=== PATIENT | male | born 1980 | race African-American/Black ===

== ENCOUNTER 2017-10-22 17:56 | Inpatient (IN) | payer OTHER ==
[~2017-10-22] VITALS: Ht 170.2 cm; Wt 80.1 kg
--- NOTE | ~2017-10-22 | 2DMMODE ---
[facility] [address] [facility] [place] [address] 2 D/M-MODE ECHOCARDIOGRAM Name: TAYLOR FIGUEROA Room #: 218-P ADM IN M.R.#: [id number] Admission: 10/22/17 Attend Phys: Justo Marcelo MD Discharge: Date of : 84 Date of Service: 10/23/17 1338 Report #: [id number] THIS REPORT FOR: //name// APPROVED REPORT Study performed: 10/23/2017 08:42:37 EXAM: Comprehensive 2D, Doppler, and color-flow Echocardiogram Patient Location: Bedside Room #: 218 Status: on-call BSA: 1.96 HR: 104 bpm BP: 132/82 mmHg Rhythm: Tachycardia Other Information Study Quality: Good Indications NSTEMI, chest pain, elevated troponin, tachycardia, HTN 2D Dimensions RVDd: 40.03 mm LVEF(%): 14.33 (>50%) IVSd: 9.61 (7-11mm) LVOT Diam: 22.03 (18-24mm) LVDd: 61.14 mm PWd: 10.37 (7-11mm) Ascending Ao: 32.69 (22-36mm) LVDs: 57.14 (25-40mm) Aortic Root: 31.86 mm Araujo's LVEF: 14.33 % Volumes Left Atrial Volume (Systole) Single Plane 4CH: 64.46 mL Single Plane 2CH: 69.92 mL LA ESV Index: 38.00 mL/m2 Aortic Valve AoV Peak Roly.: 0.80 m/s AO Peak Gr.: 2.53 mmHg LVOT Max P.25 mmHg LVOT Max V: 0.56 m/s SATYA Vmax: 2.68 cm2 Mitral Valve MV Decel. Time: 163.15 ms MV E Max Roly.: 0.81 m/s [facility] [place] [address] 2 D/M-MODE ECHOCARDIOGRAM Name: TAYLOR FIGUEROA Room #: 218-P ADM IN M.R.#: [id number] Admission: 10/22/17 Attend Phys: Justo Marcelo MD Discharge: Date of : 84 Date of Service: 10/23/17 1338 Report #: [id number] Pulmonary Valve PV Peak Roly.: 0.61 m/s PV Peak Gr.: 1.47 mmHg Tricuspid Valve TR Peak Roly.: 2.94 m/s RAP Estimate: 5.00 mmHg TR Peak Gr.: 34.65 mmHg PA Pressure: 40.00 mmHg Left Ventricle Left ventricle is mild to moderately dilated. There is normal left ventricular wall thickness. Left ventricular systolic function is severely decreased. A small left ventricular thrombus is present. LVEF is 20%. This study is not technically sufficient to allow evaluation of the LV diastolic function. Right Ventricle The right ventricle is normal size. The right ventricular systolic function is low normal. Atria Left atrium is mildly dilated. The right atrium size is normal. Aortic Valve The aortic valve is normal in structure. No aortic regurgitation is present. There is no aortic valvular stenosis. Mitral Valve The mitral valve is normal in structure. Moderate mitral regurgitation. Tricuspid Valve The tricuspid valve is normal in structure. Mild tricuspid regurgitation. Estimated PAP is 40mmHg. Pulmonic Valve The pulmonary valve is normal in structure. Trace pulmonic regurgitation. Great Vessels The aortic root is normal in size. The ascending aorta is normal in size. IVC is normal in size and collapses >50% with inspiration. Pericardium [facility] [address] [place] [address] 2 D/M-MODE ECHOCARDIOGRAM Name: TAYLOR FIGUEROA Room #: 218-P ADM IN M.R.#: [id number] Admission: 10/22/17 Attend Phys: Justo Marcelo MD Discharge: Date of : 84 Date of Service: 10/23/17 1338 Report #: [id number] There is no pericardial effusion. <Conclusion> Left ventricle is mild to moderately dilated. LVEF is 20%. A small left ventricular thrombus is present. Left atrium is mildly dilated. The aortic valve is normal in structure. The mitral valve is normal in structure. Moderate mitral regurgitation. The tricuspid valve is normal in structure. Mild tricuspid regurgitation. Estimated PAP is 40mmHg. The pulmonary valve is normal in structure. Trace pulmonic regurgitation. There is no pericardial effusion. <ELECTRONICALLY SIGNED> By: Royce Dye MD 10/23/17 1338 1338 1338 Royce Dye MD /INF
--- NOTE | ~2017-10-22 | HC ---
[facility] [place] [address] CONSULTATION Name: TAYLOR FIGUEROA Room #: 207-P [facility] IN M.R.#: [id number] Admission: 10/22/17 Attend Phys: Say Stein MD Discharge: Date of : 84 Report #: [id number] THIS REPORT FOR: //name// CC: Justo FALK unknown HISTORY OF PRESENT ILLNESS: This is a 37-year-old -Algerian male without prior history of coronary artery disease who presented to the Emergency Room complaining of chest discomfort. The patient states the symptoms began approximately one hour prior to presentation to the Emergency Room with sudden onset, nonradiating. He said it felt like a tightening, but upon further questioning it was actually a fullness sensation of not being able to capture and get his entire breath. The patient states he has been not feeling well for about 3 weeks or so where he was diagnosed with walking pneumonia. He denied any coughing at that time only when he laid down at night and it was not purulent in appearance, but clear frothy at times. He had no fever, chills or night sweats. He did go to urgent care 3 days ago where he was tested positive for the flu and was given Tamiflu, but due to side effects he did not complete his course. Upon questioning, he continued to get more short of breath and although he did play basketball weekly, the last week or so he has not been able to play due to just not feeling well, not having any energy or get up and go. He states he does have a history of high blood pressure for which he takes hydrochlorothiazide and had an inhaler prescribed some time ago for breathing. He denies any exertional tightness, heaviness or fullness or limitations prior to 3 weeks ago. PAST MEDICAL HISTORY: Significant for hypertension. MEDICATIONS: At home are hydrochlorothiazide and Tessalon Perles. ALLERGIES: No known drug allergies. SOCIAL HISTORY: The patient does not smoke. He does consume alcohol weekly. He does not follow a particular exercise regimen or dietary restriction, although he does play basketball weekly prior to his onset of symptoms. PAST SURGICAL HISTORY: Significant for no major surgical procedures. FAMILY HISTORY: Negative for premature cardiovascular disease in first degree and second degree relatives. REVIEW OF SYSTEMS: Except for symptoms previously mentioned and those commensurate with comorbid states, the 10 point review of system is negative. PHYSICAL EXAMINATION: GENERAL: Well-developed, well-nourished -Algerian male, resting comfortably in no acute distress. [facility] [address] [place] [address] CONSULTATION Name: TAYLOR FIGUEROA Room #: 207-P [facility] IN [facility]#: [id number] Admission: 10/22/17 Attend Phys: Say Stein MD Discharge: Date of : 84 Report #: [id number] VITAL SIGNS: Reviewed and noted in the chart. HEENT: Normocephalic, atraumatic. Pupils are equal, round, reactive to light and accommodation. Extraocular muscles are intact. Sclerae and conjunctivae are anicteric. NECK: JVD is normal. Carotid upstrokes are bilaterally symmetrical. No bruits are heard. No thyromegaly. No lymphadenopathy. LUNGS: Demonstrates minimal bibasilar crackles noted. Tidal volume is satisfactory. CARDIAC: Demonstrates ____ rhythm. Systolic murmur at the apex. No diastolic murmurs are noted. There is no respiratory variation to the murmur and PMI is not able to be palpated due to body habitus. ABDOMEN: Soft, nontender, nondistended. Normal bowel sounds. EXTREMITIES: Without cyanosis, clubbing or edema. Distal pulses are intact. DTR symmetrical. NEUROLOGIC: Cranial nerves 2-12 are grossly normal and symmetrical. PSYCHIATRIC: Alert, oriented with normal affect. SKIN: Warm and dry. LABORATORY DATA: Electrocardiogram, sinus tachycardia, no acute changes, nonspecific ST-T wave changes. Troponin was 2.86 on admission. LDL is 200, cholesterol 271 and HDL 61. TSH 2.8. D-dimer was 0.53. Potassium 3.7, BUN and creatinine of 15 and 1.0. H and H is 14.8 and 43.1 with a platelet count of 296,000. RADIOLOGY: CAT scan failed to demonstrate the presence of pulmonary emboli. There were some findings of atypical infection or edema posteriorly in the lower lobes. IMPRESSION: 1. Congestive heart failure secondary to markedly decreased left ventricular systolic function. The viral type syndrome, etc., may be a factor of myocarditis. He is currently electrically and hemodynamically stable. I am going to move him to the unit for closer observation. We will initiate an DEBBIE inhibitor tonight after I diurese him during the day to stabilize his orthopnea. We will then initiate beta blockade tomorrow. I did discuss at length with him and his girlfriend the diagnosis, prognosis and treatment course ahead of him. 2. Left atrial thrombus. Echocardiogram demonstrates a small left atrial thrombus. He is anticoagulated currently. We will continue with that and we will need to transition him over to warfarin at discharge. 3. Hypertension. Blood pressure is not an issue at this juncture. It has enough support, so that we can initiate the guideline directed medical therapy for cardiomyopathic process. 4. Cardiomyopathy. We will need to evaluate the source, may require [address] [address] CONSULTATION Name: TAYLOR FIGUEROA Room #: 207-P ADM IN M.R.#: [id number] Admission: 10/22/17 Attend Phys: Say Stein MD Discharge: Date of : 84 Report #: [id number] angiography at some point in time, but for now, we will stabilize his heart failure and initiate appropriate medications. <ELECTRONICALLY SIGNED> By: Royce Dye MD 10/29/17 1118 1439 2238 Royce Dye MD /nt
--- NOTE | ~2017-10-22 | EKG ---
[address] [place] [address] ELECTROCARDIOGRAM REPORT Name: TAYLOR FIGUEROA Room #: 247-P ADM IN M.R.#: [id number] Admission: 10/22/17 Attend Phys: Justo Marcelo MD Discharge: Date of : 84 Report #: [id number] THIS REPORT FOR: //name// [facility] ED Test Date: 2017-10-22 Test Time: 18:05:47 Pat Name: TAYLOR FIGUEROA Department: Room: 247 Gender: M Electronic Technician: WILLIE : 1980 Requested By: Stephanie Ruby Order Number: [id number] MD: Leonardo Austin Measurements Intervals [place] Rate: 113 P: 63 MI: 129 QRS: 3 QRSD: 86 T: 94 QT: 332 QTc: 456 Interpretive Statements Sinus tachycardia Nonspecific T wave abnormality No previous ECG available for comparison Electronically Signed On 10-24-2017 15:22:03 COFFEE BREWER by Leonardo Austin [email or web address] <ELECTRONICALLY SIGNED> By: Leonardo Austin MD, [facility] 10/24/17 1522 1805 1805 Leonardo Austin MD, FACC /EPI
--- NOTE | ~2017-10-22 | EKG ---
[place] [address] [facility] [place] [address] ELECTROCARDIOGRAM REPORT Name: TAYLOR FIGUEROA Room #: 247-P ADM IN M.R.#: [id number] Admission: 10/22/17 Attend Phys: Justo Marcelo MD Discharge: Date of : 84 Report #: [id number] THIS REPORT FOR: //name// [facility] Test Date: 2017-10-23 Test Time: 06:17:47 Pat Name: TAYLOR FIGUEROA Department: Room: 247 Gender: M Post Graduate Intern: [email or web address] : 1980 Requested By: Allyson Khan Order Number: [id number] MD: Leonardo Austin Measurements Intervals [place] Rate: 96 P: 46 IL: 141 QRS: -5 QRSD: 88 T: 61 QT: 393 QTc: 497 Interpretive Statements Sinus rhythm Left ventricular hypertrophy Nonspecific T wave abnormality Prolonged QT interval No previous ECG available for comparison Electronically Signed On 10-24-2017 15:25:40 BACK SIZER by Leonardo Austin [email or web address] <ELECTRONICALLY SIGNED> By: Leonardo Austin MD, [facility] 10/24/17 1525 0617 6 Leonardo Austin MD, FACC /EPI
[2017-10-22 18:01] VITALS: BP 145/98
[2017-10-22 18:21] LABS: BASOPHILS 0.7 % (0.0-2.0); HEMATOCRIT 43.1 % (42.0-52.0); HEMOGLOBIN 14.8 gm/dL (14.0-18.0); LYMPHOCYTES 49.9 % (24.0-44.0); MCH 31.2 pg (26.0-34.0); MCHC 34.4 g/dL (28.0-37.0); MCV 90.6 fL (80.0-100.0); MONOCYTES 9.3 % (1.0-8.0); PLATELET COUNT 296 thou/uL (150-400); POLYS 36.1 % (36.0-66.0); RBC 4.76 mil/uL (4.50-6.00); RDW 12.8 % (10.5-14.5); WBC 5.4 thou/uL (4.0-11.0)
[2017-10-22 18:24] LABS: ANION GAP 9 mmol/L (7-16); BUN 15 mg/dL (7-18); CALCIUM 8.9 mg/dL (8.5-10.1); CHLORIDE 109 mmol/L (98-107); CO2 24 mmol/L (21-32); GLUCOSE 120 mg/dL (74-106); POTASSIUM 3.7 mmol/L (3.5-5.1); SODIUM 142 mmol/L (136-145)
[2017-10-22 18:33] LABS: TROPONIN-I < 0.04 ng/mL (<0.06)
[2017-10-22] MEDS ORDERED: TESSALON PERLE100 MG PO (21:01)
[2017-10-22] MEDS ORDERED: HYDROCHLOROTHIA25 M2 PO (21:01)
[2017-10-22 21:04] LABS: APTT 24.7 Seconds (24.5-32.8); PROTIME 10.1 Seconds (9.3-11.4)
[2017-10-22 21:24] VITALS: BP 145/98
[2017-10-22 21:57] VITALS: BP 151/90
[2017-10-22 22:12] LABS: CHOLESTEROL 271 mg/dL (<200); HDL CHOLESTEROL 61 mg/dL (>40); LDL CHOLESTEROL 200 mg/dL (<100); TC:HDL 4.4 Ratio (Not establshd); TRIGLYCERIDE 53 mg/dL (<150); VLDL 11 mg/dL (<40)
[2017-10-22 22:25] LABS: SERUM ASSESSMENT Clear
[2017-10-22 22:32] VITALS: BP 149/102
[2017-10-23] VITALS (8 sets, daily range): BP systolic 114–132; BP diastolic 81–108
[2017-10-23 11:21] LABS: AMP/METHAMP Negative (Negative); BARBITURATES Negative (Negative); BENZODIAZEPINES Negative (Negative); COCAINE Negative (Negative); METHADONE Negative (Negative); OPIATES POSITIVE (Negative); PCP Negative (Negative)
[2017-10-23 16:06] LABS: GLYCOHEMOGLOBIN (HGB A1C) 5.3 % (4.8-5.6)
[2017-10-24] VITALS (13 sets, daily range): BP systolic 89–120; BP diastolic 67–100
[2017-10-24 09:17] LABS: ABSOLUTE NEUTROPHILS 3.3 thou/uL (1.4-8.2); BASOPHILS 0.6 % (0.0-2.0); EOSINOPHILS 1.5 % (0.0-3.0); HEMATOCRIT 45.4 % (42.0-52.0); HEMOGLOBIN 15.3 gm/dL (14.0-18.0); LYMPHOCYTES 37.6 % (24.0-44.0); MCH 30.6 pg (26.0-34.0); MCHC 33.7 g/dL (28.0-37.0); MCV 90.6 fL (80.0-100.0); MONOCYTES 8.4 % (1.0-8.0); PLATELET COUNT 305 thou/uL (150-400); POLYS 51.9 % (36.0-66.0); RBC 5.01 mil/uL (4.50-6.00); RDW 12.8 % (10.5-14.5); WBC 6.4 thou/uL (4.0-11.0)
[2017-10-24 09:34] LABS: CALCIUM 9.2 mg/dL (8.5-10.1); CREATININE 1.1 mg/dL (0.7-1.3); POTASSIUM 3.7 mmol/L (3.5-5.1)
[2017-10-24 09:38] LABS: TROPONIN-I 7.52 ng/mL (<0.06)
[2017-10-25] VITALS (10 sets, daily range): BP systolic 90–122; BP diastolic 57–83
[2017-10-25 02:57] LABS: HEMATOCRIT 44.6 % (42.0-52.0); HEMOGLOBIN 14.8 gm/dL (14.0-18.0); MCH 30.1 pg (26.0-34.0); MCHC 33.2 g/dL (28.0-37.0); MCV 90.7 fL (80.0-100.0); RBC 4.92 mil/uL (4.50-6.00); RDW 12.8 % (10.5-14.5); WBC 7.1 thou/uL (4.0-11.0)
[2017-10-25 03:03] LABS: CALCIUM 8.6 mg/dL (8.5-10.1); CREATININE 1.1 mg/dL (0.7-1.3); POTASSIUM 3.1 mmol/L (3.5-5.1)
[2017-10-26] VITALS (11 sets, daily range): BP systolic 82–114; BP diastolic 51–79
[2017-10-26 13:26] LABS: PROTIME 10.7 Seconds (9.3-11.4)
[2017-10-27 05:05] VITALS: BP 79/52
[2017-10-27 05:46] LABS: HEMATOCRIT 41.3 % (42.0-52.0); MCHC 33.9 g/dL (28.0-37.0); MCV 91.4 fL (80.0-100.0); RBC 4.52 mil/uL (4.50-6.00); WBC 5.2 thou/uL (4.0-11.0)
[2017-10-27 05:58] LABS: POTASSIUM 3.6 mmol/L (3.5-5.1)
[2017-10-27 07:18] VITALS: BP 109/69
[2017-10-27 10:03] LABS: INR 1.1; PROTIME 11.5 Seconds (9.3-11.4)
[2017-10-27 12:30] VITALS: BP 102/64
[2017-10-27 16:16] VITALS: BP 107/70
[2017-10-27 20:25] VITALS: BP 114/80
[2017-10-27 23:55] VITALS: BP 110/61
[2017-10-28 03:54] LABS: HEMATOCRIT 41.8 % (42.0-52.0); HEMOGLOBIN 14.2 gm/dL (14.0-18.0); MCH 30.5 pg (26.0-34.0); MCHC 33.9 g/dL (28.0-37.0); MCV 90.1 fL (80.0-100.0); RBC 4.64 mil/uL (4.50-6.00); RDW 12.5 % (10.5-14.5); WBC 5.5 thou/uL (4.0-11.0)
[2017-10-28 04:02] LABS: INR 1.3; PROTIME 13.2 Seconds (9.3-11.4)
[2017-10-28 04:45] VITALS: BP 104/65
[2017-10-28] MEDS ORDERED: ATORVASTATIN CA40 MG PO (09:37)
[2017-10-28] MEDS ORDERED: LISINOPRIL2.5 MG PO (09:37)
[2017-10-28] MEDS ORDERED: ST. JOSEPH ASPI81 MG PO (09:37)
[2017-10-28] MEDS ORDERED: COREG6.25 MG PO (09:37)
[2017-10-28 11:42] VITALS: BP 97/67
[2017-10-28 16:40] VITALS: BP 120/82
[2017-10-28 20:35] VITALS: BP 113/76
[2017-10-29 04:14] LABS: HEMATOCRIT 42.7 % (42.0-52.0); HEMOGLOBIN 14.5 gm/dL (14.0-18.0); MCH 30.7 pg (26.0-34.0); MCHC 33.9 g/dL (28.0-37.0); MCV 90.3 fL (80.0-100.0); RBC 4.73 mil/uL (4.50-6.00); RDW 12.9 % (10.5-14.5); WBC 5.6 thou/uL (4.0-11.0)
[2017-10-29 04:23] LABS: INR 1.6; PROTIME 16.2 Seconds (9.3-11.4)
[2017-10-29 04:58] VITALS: BP 83/50
[2017-10-29 07:08] VITALS: BP 97/66
[2017-10-29 11:21] VITALS: BP 109/68
[2017-10-29 15:25] VITALS: BP 96/66
[2017-10-29 17:07] LABS: INR 1.6; PROTIME 16.4 Seconds (9.3-11.4)
[2017-10-29] MEDS ORDERED: GUAIFENESIN/COD10 M1 PO (18:07)
[2017-10-29] MEDS ORDERED: TESSALON PERLE100 MG PO (18:07)
[2017-10-29] MEDS ORDERED: COUMADIN7.5 MG PO (18:12)
[2017-10-29 18:13] VITALS: BP 96/66
== END 2017-10-29 19:06 | disposition home or self-care (01) | DRG 871 ==
LOC: ER 17:56 → EROBS 20:54 → ICU 20:54 → EROBS 20:56 → 2N 22:11 → ICU 10-23 14:12 → 2N 10-25 13:56
PROVIDERS: Emergency Medicine; Hospitalist; Nurse Practitioner Family; Nurse Practitioner Gerontology
PROC: 05HF33Z Insertion of Infusion Device into Left Cephalic Vein, Percutaneous Approach (ICD-10-PCS; principal; 2017-10-25)
DX: A41.9 Sepsis, unspecified organism (principal); I21.4 Non-ST elevation (NSTEMI) myocardial infarction; J18.9 Pneumonia, unspecified organism; I50.23 Acute on chronic systolic (congestive) heart failure; I40.1 Isolated myocarditis; I23.6 Thrombosis of atrium, auricular appendage, and ventricle as current complications following acute myocardial infarction; I42.9 Cardiomyopathy, unspecified; R94.31 Abnormal electrocardiogram [ECG] [EKG]; I11.0 Hypertensive heart disease with heart failure; E66.9 Obesity, unspecified; Z79.899 Other long term (current) drug therapy; Z87.01 Personal history of pneumonia (recurrent); Z91.19 Patient's noncompliance with other medical treatment and regimen
CPT/HCPCS: 10078; 10081; 27001

== ENCOUNTER 2018-07-29 18:31 | Emergency (ER) | payer OTHER ==
[~2018-07-29] VITALS: Ht 170.2 cm; Wt 81.7 kg
--- NOTE | ~2018-07-29 | EKG ---
[address] [place] [address] ELECTROCARDIOGRAM REPORT Name: TAYLOR FIGUEROA [id number] Admission: 07/29/18 Attend Phys: Discharge: 07/29/18 Date of : 84 Report #: [id number] THIS REPORT FOR: //name// [facility] ED Test Date: 2018-07-29 Test Time: 18:50:07 Pat Name: TAYLOR FIGUEROA Department: Room: Gender: Hazardous Substances Engineer: oliver : 1980 Requested By: Live Whitlock Order Number: [id number] MD: Royce Dye Measurements Intervals [place] Rate: 75 P: GA: QRS: -7 QRSD: 86 T: -17 QT: 371 QTc: 415 Interpretive Statements Normal Sinus Rhythm Nonspecific ST/T abnormalities Compared to ECG 10/23/2017 06:17:47 Electronically Signed On 07-31-2018 23:14:32 NEWSPAPER PHOTOGRAPHER by Royce Dye [email or web address] <ELECTRONICALLY SIGNED> By: Royce Dye MD 07/31/18 2314 1850 1850 Royce Dye MD /FITZ
[~2018-07-29 18:31] MED LIST: ATORVASTATIN CA40 MG PO; COREG6.25 MG PO; COUMADIN7.5 MG PO; GUAIFENESIN/COD10 M1 PO; HYDROCHLOROTHIA25 M2 PO; LISINOPRIL2.5 MG PO; ST. JOSEPH ASPI81 MG PO; TESSALON PERLE100 MG PO
[2018-07-29] MEDS ORDERED: SPIRONOLACTONE25 M1 PO (19:19)
[2018-07-29 19:38] LABS: ABSOLUTE NEUTROPHILS 2.8 thou/uL (1.4-8.2); BASOPHILS 0.5 % (0.0-2.0); EOSINOPHILS 2.4 % (0.0-3.0); HEMATOCRIT 37.8 % (42.0-52.0); HEMOGLOBIN 12.9 gm/dL (14.0-18.0); LYMPHOCYTES 39.7 % (24.0-44.0); MCV 91.2 fL (80.0-100.0); MONOCYTES 8.1 % (1.0-8.0); PLATELET COUNT 297 thou/uL (150-400); POLYS 49.3 % (36.0-66.0); RBC 4.14 mil/uL (4.50-6.00); RDW 13.4 % (10.5-14.5); WBC 5.7 thou/uL (4.0-11.0)
[2018-07-29 19:45] LABS: ANION GAP 6 mmol/L (7-16); BUN 20 mg/dL (7-18); CALCIUM 9.3 mg/dL (8.5-10.1); CHLORIDE 108 mmol/L (98-107); CO2 29 mmol/L (21-32); CREATININE 0.9 mg/dL (0.7-1.3); GLUCOSE 99 mg/dL (74-106); POTASSIUM 3.8 mmol/L (3.5-5.1); SODIUM 143 mmol/L (136-145)
[2018-07-29 19:55] LABS: TROPONIN-I <0.06 ng/mL (<0.06)
[2018-07-29 20:39] VITALS: BP 141/90
== END 2018-07-29 20:40 | disposition home or self-care (01) ==
LOC: ER 18:31
PROVIDERS: Physician Assistant
DX: R06.02 Shortness of breath (principal); R20.2 Paresthesia of skin; I11.0 Hypertensive heart disease with heart failure; I50.9 Heart failure, unspecified; Z87.891 Personal history of nicotine dependence

== ENCOUNTER 2019-03-04 23:16 | Emergency (ER) | payer OTHER ==
[~2019-03-04] VITALS: Ht 167.6 cm; Wt 70.3 kg
[~2019-03-04 23:16] MED LIST changes: +SPIRONOLACTONE25 M1 PO
[2019-03-04] MEDS ORDERED: ENTRESTO 24 MG1 EACH PO (23:38)
[2019-03-04] MEDS ORDERED: POTASSIUM20 PO (23:39)
[2019-03-05 00:04] LABS: ABSOLUTE NEUTROPHILS 1.8 thou/uL (1.4-8.2); BASOPHILS 0.5 % (0.0-2.0); EOSINOPHILS 3.1 % (0.0-3.0); HEMATOCRIT 40.4 % (42.0-52.0); HEMOGLOBIN 13.6 gm/dL (14.0-18.0); LYMPHOCYTES 52.1 % (24.0-44.0); MCH 30.7 pg (26.0-34.0); MCHC 33.7 g/dL (28.0-37.0); MCV 91.2 fL (80.0-100.0); MONOCYTES 9.3 % (1.0-8.0); PLATELET COUNT 290 thou/uL (150-400); RBC 4.43 mil/uL (4.50-6.00); RDW 12.8 % (10.5-14.5); WBC 5.1 thou/uL (4.0-11.0)
[2019-03-05 00:07] LABS: CALCIUM 8.7 mg/dL (8.5-10.1); POTASSIUM 3.6 mmol/L (3.5-5.1)
[2019-03-05 00:14] LABS: ALBUMIN 3.9 g/dL (3.4-5.0); TOTAL BILIRUBIN 0.5 mg/dL (<0.1-1.0); TOTAL PROTEIN 7.5 g/dL (6.4-8.2)
[2019-03-05 01:42] LABS: URINE BILIRUBIN NEGATIVE (Negative); URINE BLOOD NEGATIVE (Negative); URINE CLARITY CLEAR; URINE COLOR YELLOW; URINE GLUCOSE-RANDOM* NEGATIVE (Negative); URINE KETONES NEGATIVE (Negative); URINE LEUKOCYTES-REFLEX NEGATIVE (Negative); URINE NITRITE-REFLEX NEGATIVE (Negative); URINE PROTEIN (DIPSTICK) NEGATIVE (Negative); URINE SPECIFIC GRAVITY <= 1.005 (1.005-1.035)
[2019-03-05 01:52] LABS: AMP/METHAMP Negative (Negative); BARBITURATES Negative (Negative); BENZODIAZEPINES Negative (Negative); COCAINE Negative (Negative); METHADONE Negative (Negative); OPIATES Negative (Negative); PCP Negative (Negative)
[2019-03-05 02:38] VITALS: BP 133/72
--- NOTE | 2019-03-06 08:14 | EKG ---
[address] [address] ELECTROCARDIOGRAM REPORT Name: TAYLOR FIGUEROA [id number] ������������������ Admission: 03/04/19 ������������������ Attend Phys: Discharge: 03/05/19 ������������������ Date of : 84 Report #: [id number] ����������������������������������������������������������������� [id number] THIS REPORT FOR: //name// [facility] ED Test Date: 2019-03-04 Test Time: 23:24:00 Pat Name: TAYLOR FIGUEROA Department: Room: Gender: M International Coordinator: CAMERON : 1980 Requested By: Jelani Almendarez Order Number: [id number] MD: Natalio Stanley Measurements Intervals [place] Rate: 83 P: 58 IN: 156 QRS: 10 QRSD: 82 T: -11 QT: 350 QTc: 412 Interpretive Statements Sinus rhythm Borderline T abnormalities, anterior leads Compared to ECG 07/29/2018 18:50:07 T-wave abnormality now present Electronically Signed On 03-06-2019 8:14:45 CDT by Natalio Stanley [email or web address] ��������������������������������������������� <ELECTRONICALLY SIGNED> ���������������������������������������� By: Natalio Stanley MD ��������������������������������������������� 03/06/19 0814 23 23 Natalio Stanley MD /FITZ
== END 2019-03-05 02:40 | disposition home or self-care (01) ==
LOC: ER 23:16
PROVIDERS: Emergency Medicine
DX: R20.2 Paresthesia of skin (principal); I11.0 Hypertensive heart disease with heart failure; I50.9 Heart failure, unspecified; Z87.891 Personal history of nicotine dependence; Z79.899 Other long term (current) drug therapy

== ENCOUNTER 2019-03-27 14:43 | Emergency (ER) | payer OTHER ==
[~2019-03-27] VITALS: Ht 170.2 cm; Wt 81.7 kg
[~2019-03-27 14:43] MED LIST changes: +ENTRESTO 24 MG1 EACH PO; +POTASSIUM20 PO
[2019-03-27 15:57] LABS: ABSOLUTE NEUTROPHILS 2.7 thou/uL (1.4-8.2); BASOPHILS 0.5 % (0.0-2.0); EOSINOPHILS 2.5 % (0.0-3.0); HEMATOCRIT 40.1 % (42.0-52.0); HEMOGLOBIN 13.5 gm/dL (14.0-18.0); MCH 30.7 pg (26.0-34.0); MCHC 33.8 g/dL (28.0-37.0); MCV 90.9 fL (80.0-100.0); MONOCYTES 6.9 % (1.0-8.0); PLATELET COUNT 303 thou/uL (150-400); POLYS 54.1 % (36.0-66.0); RBC 4.41 mil/uL (4.50-6.00); RDW 13.1 % (10.5-14.5)
[2019-03-27 16:02] LABS: ANION GAP 10 mmol/L (7-16); BUN 16 mg/dL (7-18); CALCIUM 9.2 mg/dL (8.5-10.1); CHLORIDE 106 mmol/L (98-107); CO2 27 mmol/L (21-32); CREATININE 1.1 mg/dL (0.7-1.3); GLUCOSE 104 mg/dL (74-106); POTASSIUM 3.9 mmol/L (3.5-5.1); SODIUM 143 mmol/L (136-145)
[2019-03-27 16:12] LABS: ALBUMIN 3.7 g/dL (3.4-5.0); MAGNESIUM 1.7 mg/dL (1.8-2.4); SGOT 24 U/L (15-37); SGPT 36 U/L (30-65); TOTAL BILIRUBIN 0.4 mg/dL (<0.1-1.0); TOTAL PROTEIN 7.6 g/dL (6.4-8.2); TROPONIN-I <0.06 ng/mL (<0.06)
[2019-03-27 18:38] VITALS: BP 130/84
--- NOTE | 2019-03-28 18:22 | EKG ---
[address] [place] [address] ELECTROCARDIOGRAM REPORT Name: TAYLOR FIGUEROA [id number] ������������������ Admission: 03/27/19 ������������������ Attend Phys: Discharge: 03/27/19 ������������������ Date of : 84 Report #: [id number] ����������������������������������������������������������������� [id number] THIS REPORT FOR: //name// [facility] ED Test Date: 2019-03-27 Test Time: 14:43:01 Pat Name: TAYLOR FIGUEROA Department: Room: Gender: M Repairer Pump: : 1980 Requested By: Jelani Almendarez Order Number: [id number] MD: Leonardo Austin Measurements Intervals [place] Rate: 82 P: 43 NC: 157 QRS: 0 QRSD: 90 T: 16 QT: 380 QTc: 444 Interpretive Statements Sinus rhythm Normal tracing Compared to ECG 03/04/2019 23:24:00 T-wave abnormality no longer present Electronically Signed On 03-28-2019 18:22:00 CDT by Leonardo Austin [email or web address] ��������������������������������������������� <ELECTRONICALLY SIGNED> ���������������������������������������� By: Leonardo Austin MD, [facility] ��������������������������������������������� 03/28/19 1822 1443 1443 Leonardo Austin MD, FACC /EPI
== END 2019-03-27 18:58 | disposition home or self-care (01) ==
LOC: ER 14:43
PROVIDERS: Emergency Medicine
DX: R07.89 Other chest pain (principal)

== ENCOUNTER 2021-09-20 15:44 | Emergency (ER) | payer OTHER ==
[~2021-09-20] VITALS: Ht 170.2 cm; Wt 79.4 kg
[2021-09-20 16:46] LABS: HEMATOCRIT 45.3 % (42.0-52.0); HEMOGLOBIN 14.9 gm/dL (14.0-18.0); MCH 30.8 pg (26.0-34.0); MCHC 32.9 g/dL (28.0-37.0); MCV 93.8 fL (80.0-100.0); PLATELET COUNT 335 thou/uL (150-400); RBC 4.83 mil/uL (4.50-6.00); RDW 13.2 % (10.5-14.5); WBC 4.6 thou/uL (4.0-11.0)
[2021-09-20 16:55] LABS: CALCIUM 9.1 mg/dL (8.5-10.1); CREATININE 0.9 mg/dL (0.7-1.3); POTASSIUM 3.8 mmol/L (3.5-5.1)
[2021-09-20 17:05] LABS: ALBUMIN 3.6 g/dL (3.4-5.0); TOTAL BILIRUBIN 0.4 mg/dL (0.2-1.0); TOTAL PROTEIN 7.4 g/dL (6.4-8.2)
[2021-09-20 17:43] LABS: ATYPICAL LYMPHS 6 %
[2021-09-20] MEDS ORDERED: LASIX 20 MG TAB20 MG PO (19:16)
[2021-09-20] MEDS ORDERED: KLOR-CON 1010 MEQ PO (19:16)
[2021-09-20] MEDS ORDERED: CARVEDILOL12.5 MG PO (19:16)
[2021-09-20] MEDS ORDERED: DOXYCYCLINE 10100 MG PO (19:16)
[2021-09-20 19:45] VITALS: BP 148/103
--- NOTE | 2021-09-22 07:50 | EKG ---
[place] [address] [address] [place] [place] [address] ELECTROCARDIOGRAM REPORT Name: TAYLOR FIGUEROA [id number] Admission: 09/20/21 Attend Phys: Discharge: 09/20/21 Date of : 84 Report #: [id number] [facility] ED Test Date: 2021-09-20 Test Time: 15:58:23 Pat Name: TAYLOR FIGUEROA Department: Room: Gender: M History Professor: : 1980 Requested By: Buzz Lopez Order Number: [id number] MD: Sebastián Sue Measurements Intervals [place] Rate: 117 P: 59 DE: 36 QRS: -6 QRSD: 84 T: QT: 323 QTc: 451 Interpretive Statements Sinus tachycardia Consider left ventricular hypertrophy Nonspecific T abnrm, anterolateral leads Baseline wander in lead(s) I,II,aVR,V2 Compared to ECG 03/27/2019 14:43:01 Sinus rhythm no longer present Electronically Signed On 09-22-2021 7:50:32 POLISHER ALUMINUM by Sebastián Sue [email or web address] <ELECTRONICALLY SIGNED> By: Sebastián Sue MD, [facility] 09/22/21 0750 1558 1558 Sebastián Sue MD, FAC /EPI
== END 2021-09-20 20:48 | disposition home or self-care (01) ==
LOC: ER 15:44
PROVIDERS: Physician Assistant
DX: I11.0 Hypertensive heart disease with heart failure (principal); Z20.822 Contact with and (suspected) exposure to COVID-19; I50.9 Heart failure, unspecified; J18.9 Pneumonia, unspecified organism; R06.02 Shortness of breath; Z79.82 Long term (current) use of aspirin; Z79.899 Other long term (current) drug therapy; Z87.891 Personal history of nicotine dependence

== ENCOUNTER 2021-10-02 10:17 | Emergency (ER) | payer OTHER ==
[~2021-10-02] VITALS: Ht 182.9 cm; Wt 90.7 kg
[~2021-10-02 10:17] MED LIST changes: +CARVEDILOL12.5 MG PO; +DOXYCYCLINE 10100 MG PO; +KLOR-CON 1010 MEQ PO; +LASIX 20 MG TAB20 MG PO
[2021-10-02 10:43] LABS: ABSOLUTE NEUTROPHILS 2.2 thou/uL (1.4-8.2); BASOPHILS 0.8 % (0.0-2.0); EOSINOPHILS 1.5 % (0.0-3.0); HEMATOCRIT 45.3 % (42.0-52.0); HEMOGLOBIN 15.3 gm/dL (14.0-18.0); LYMPHOCYTES 38.4 % (24.0-44.0); MCH 31.1 pg (26.0-34.0); MCHC 33.9 g/dL (28.0-37.0); MONOCYTES 10.7 % (1.0-8.0); PLATELET COUNT 304 thou/uL (150-400); POLYS 48.6 % (36.0-66.0); RBC 4.93 mil/uL (4.50-6.00); RDW 12.8 % (10.5-14.5); WBC 4.5 thou/uL (4.0-11.0)
[2021-10-02 10:58] LABS: CALCIUM 8.8 mg/dL (8.5-10.1); CREATININE 0.9 mg/dL (0.7-1.3); POTASSIUM 3.6 mmol/L (3.5-5.1)
--- NOTE | 2021-10-02 12:30 | EKG ---
[place] [address] [employer] [facility] [place] [address] ELECTROCARDIOGRAM REPORT Name: TAYLOR FIGUEROA [facility] [id number] Admission: 10/02/21 Attend Phys: Discharge: Date of : 84 Report #: [id number] [facility] ED Test Date: 2021-10-02 Test Time: 10:32:11 Pat Name: TAYLOR FIGUEROA Department: Room: Gender: M Recycle Worker: NAZIA : 1980 Requested By: Isaias Hayward Order Number: [id number] MD: Sebastián Sue Measurements Intervals [place] Rate: 104 P: -86 MN: 77 QRS: -4 QRSD: 85 T: QT: 343 QTc: 452 Interpretive Statements Sinus or ectopic atrial tachycardia Probable left atrial enlargement Left ventricular hypertrophy Nonspecific T abnrm, anterolateral leads Compared to ECG 09/20/2021 15:58:23 Sinus tachycardia no longer present Electronically Signed On 10-02-2021 12:30:30 RN TRANSITION by Sebastián Sue [email or web address] <ELECTRONICALLY SIGNED> By: Sebastián Sue MD, [facility] 10/02/21 1230 1032 103 Sebastián Sue MD, FACC /EPI
[2021-10-02] MEDS ORDERED: LASIX 40 MG TAB40 MG PO (12:37)
[2021-10-02] MEDS ORDERED: TESSALON PERLE100 MG PO (12:37)
[2021-10-02 13:58] VITALS: BP 136/101
== END 2021-10-02 14:02 | disposition home or self-care (01) ==
LOC: ER 10:17
PROVIDERS: Emergency Medicine
DX: I50.9 Heart failure, unspecified (principal); Z20.822 Contact with and (suspected) exposure to COVID-19; I11.0 Hypertensive heart disease with heart failure; Z79.899 Other long term (current) drug therapy; Z87.891 Personal history of nicotine dependence